=== PATIENT | male | born 1960 | race American Indian/Alaskan Native ===

== ENCOUNTER 2017-03-23 22:01 | Emergency (ER) | payer OTHER, SELFPAY ==
[~2017-03-23] VITALS: Ht 162.6 cm; Wt 75.0 kg
[2017-03-23] MEDS ORDERED: NAPR500T3 PO (22:38)
[2017-03-23] MEDS ORDERED: ALPR1TAB2 PO (22:38)
[2017-03-23] MEDS ORDERED: TRAM100T2 PO (22:38)
[2017-03-23 22:47] LABS: HEMATOCRIT 44.1 % (39.2-51.8); HEMOGLOBIN 14.2 g/dL (13.7-18.0); WHITE BLOOD COUNT 10.4 x10^3/uL (3.4-10)
[2017-03-23 22:53] LABS: PATH.CAST-FLAG NOT PRESENT; SPERM-FLAG NOT PRESENT; SRC-FLAG NOT PRESENT; XTAL-FLAG NOT PRESENT; YLC-FLAG NOT PRESENT
[2017-03-23 22:57] LABS: BLOOD UREA NITROGEN 10 mg/dL (7-18)
[2017-03-23 23:33] VITALS: BP 127/81
== END 2017-03-23 23:34 | disposition home or self-care (01) ==
LOC: ED 23:30
DX: N30.00 Acute cystitis without hematuria (principal); R33.9 Retention of urine, unspecified; N40.0 Benign prostatic hyperplasia without lower urinary tract symptoms
CPT/HCPCS: 36415; 51702; 80048; 81001; 82040; 85025; 87077; 87086; 87186; 99284

== ENCOUNTER 2017-09-04 00:41 | Emergency (ER) | payer SELFPAY ==
[~2017-09-04] VITALS: Ht 167.6 cm; Wt 73.6 kg
[~2017-09-04 00:41] MED LIST: ALPR1TAB2 PO; NAPR500T4 PO; TRAM100T2 PO
[2017-09-04] MEDS ORDERED: TRAZ50TA18 PO (01:35)
[2017-09-04 01:36] VITALS: BP 115/83
[2017-09-04 02:29] LABS: MICROSCOPIC NOT IND
[2017-09-04 02:36] LABS: CULTURE INDICATED? NO
== END 2017-09-04 03:21 ==
LOC: ED 01:54
DX: N40.1 Benign prostatic hyperplasia with lower urinary tract symptoms (principal); R10.30 Lower abdominal pain, unspecified
CPT/HCPCS: 51702; 81003; 99284

== ENCOUNTER 2017-10-25 20:27 | Emergency (ER) | payer OTHER ==
[~2017-10-25] VITALS: Ht 175.3 cm; Wt 73.4 kg
[~2017-10-25 20:27] MED LIST changes: +NAPR-685 PO; -NAPR500T4 PO; +TRAZ50TA18 PO
[2017-10-25 21:34] LABS: ALBUMIN 3.8 g/dL (3.4-5.0); ANION GAP 6 mmol/L (5-15); CALCIUM 8.8 mg/dL (8.5-10.1); CHLORIDE 110 mmol/L (98-107); CREATININE 0.77 mg/dL (0.7-1.3)
[2017-10-25 21:38] LABS: BASOPHILS # (AUTO) 0.06 x10^3/uL (0-0.1); BASOPHILS % (AUTO) 1 % (0-1); EOSINOPHILS # (AUTO) 0.25 x10^3/uL (0-0.4); EOSINOPHILS % (AUTO) 5 % (1-7); LYMPHOCYTES % (AUTO) 39 % (22-44); MD NO; MEAN CORPUSCULAR HEMOGLOBIN 28.1 pg (27.5-34.5); MEAN CORPUSCULAR HGB CONC 33.3 g/dL (33.2-36.2); MEAN CORPUSCULAR VOLUME 84.2 fL (81-97); MEAN PLATELET VOLUME 7.9 fL (7.4-10.4); MONOCYTES # (AUTO) 0.48 x10^3/uL (0.2-0.8); MONOCYTES % (AUTO) 9 % (2-9); NEUTROPHILS % (AUTO) 46 % (42-75); PLATELET COUNT 264 x10^3/uL (130-400); RED BLOOD COUNT 4.84 x10^6/uL (4.38-5.82); RED CELL DISTRIBUTION WIDTH 14.2 % (9.4-14.8)
[2017-10-25 21:44] VITALS: BP 109/70
[2017-10-25 21:56] LABS: MICROSCOPIC NOT IND
[2017-10-25 21:57] LABS: CULTURE INDICATED? NO
== END 2017-10-25 22:43 | disposition home or self-care (01) ==
LOC: ED 21:58
DX: N40.1 Benign prostatic hyperplasia with lower urinary tract symptoms (principal); R33.8 Other retention of urine
CPT/HCPCS: 36415; 51702; 76770; 80048; 81003; 82040; 85025; 99285